=== PATIENT | female | born 1995 | race Caucasian/White ===

== ENCOUNTER 2016-12-29 14:46 | Emergency (ER) | payer BC ==
[~2016-12-29] VITALS: Ht 165.1 cm; Wt 50.0 kg
[~2016-12-29 14:46] MED LIST: CHLO.12%30 SSP; PENI500T PO; TYLE3 PO
[2016-12-29 14:49] VITALS: BP 146/84; PULSE 117; RESP 14; TEMP 98.4; O2SAT 98
[2016-12-29] MEDS ORDERED: [UNRECOGNIZED DRUG - REMARK] (15:29)
[2016-12-29] MEDS ORDERED: [UNRECOGNIZED DRUG - REMARK] (15:29)
[2016-12-29] MEDS ORDERED: TETANUS/DIPHTHERIA TOXOID ADULT 0.5 ML VIAL IM ONE (15:45)
--- NOTE | 2016-12-29 16:26 | RADRPT ---
EXAM DATE/TIME: 12/29/2016 16:11 [facility] COMPARISON: No previous studies available for comparison. INDICATIONS : Patient punched a glass window this afternoon. Patient unable to remove ring on third digit because o f finger being swollen. MEDICAL HISTORY : None. SURGICAL HISTORY : None. ENCOUNTER: Initial ACUITY: 1 day PAIN SCORE: 8/10 LOCATION: Right hand. FINDINGS: There is soft-tissue swelling involving the right third digit. There is no acute fracture or disloca tion. No radiopaque foreign body is noted. CONCLUSION: 1. Mild soft-tissue swelling involving the right third digit. 2. No acute fracture, dislocation, or radiopaque foreign body. Herbierto Vaughan MD on December 29, 2016 at 16:23 Board Certified Radiologist. This report was verified electronically.
[2016-12-29] MEDS ORDERED: LIDOCAINE HCL 1% 50 ML VIAL INFIL ONE (16:30)
[2016-12-29 16:47] LABS: AUTOMATED NEUTROPHIL # 4.2 TH/MM3 (1.8-7.7); BASOPHIL % 0.3 % (0.0-2.0); EOSINOPHIL % 0.5 % (0.0-4.0); HEMATOCRIT 39.8 % (35.0-46.0); HEMO FLAGS DIFF FINAL; LYMPH % 19.9 % (9.0-44.0); LYMPHOCYTE # 1.1 TH/MM3 (1.0-4.8); MEAN CELL VOLUME 86.8 FL (80.0-100.0); MEAN CORPUSCULAR HEMOGLOBIN 29.1 PG (27.0-34.0); MEAN CORPUSCULAR HGB CONC 33.5 % (32.0-36.0); MONO % 4.8 % (0.0-8.0); NEUT % 74.5 % (16.0-70.0); PLATELET COUNT 342 TH/MM3 (150-450); RED BLOOD COUNT 4.59 MIL/MM3 (4.00-5.30); RED CELL DISTRIBUTION WIDTH 13.9 % (11.6-17.2); WHITE BLOOD COUNT 5.6 TH/MM3 (4.0-11.0)
[2016-12-29 17:04] LABS: ANION GAP 6 MEQ/L (5-15); AST (GOT) 35 U/L (15-37); BICARBONATE 28.1 MEQ/L (21.0-32.0); BLOOD UREA NITROGEN 9 MG/DL (7-18); CHLORIDE 106 MEQ/L (98-107); GLOMERULAR FILTRATION RATE 100 ML/MIN (>89); SODIUM (NA) 140 MEQ/L (136-145)
--- NOTE | 2016-12-29 17:07 | PD ---
Physical Exam Time Seen by Provider: 17:[address] Mejia asked me to repair the laceration to the dorsal aspect of the right wrist. Data Data Last Documented VS Vital Signs Date Time Temp Pulse Resp B/P Pulse Ox O2 Delivery O2 Flow Rate FiO2 12/29/16 14:49 98.4 117 14 146/84 98 Room Air Orders Hand, Complete ([id number]) (12/29/16 ) Tetanus/Diphtheria Tox Adult (Tetanus/Di (12/29/16 15:45) Complete Blood Count With Diff (12/29/16 16:10) Comprehensive Metabolic Panel (12/29/16 16:10) Urinalysis - C+S If Indicated (12/29/16 16:10) Ed Urine Pregnancytest Poc (12/29/16 16:10) Psych Screen (12/29/16 16:10) Drug Screen, Random Urine (12/29/16 16:10) Alcohol (Ethanol) (12/29/16 16:10) Lidocaine 1% Inj (50 Ml) (Xylocaine 1% I (12/29/16 16:30) Labs Laboratory Tests Test 12/29/16 16:35 White Blood Count 5.6 TH/MM3 Red Blood Count 4.59 MIL/MM3 Hemoglobin 13.4 GM/DL Hematocrit 39.8 % Mean Corpuscular Volume 86.8 FL Mean Corpuscular Hemoglobin 29.1 PG Mean Corpuscular Hemoglobin 33.5 % Concent Red Cell Distribution Width 13.9 % Platelet Count 342 TH/MM3 Mean Platelet Volume 7.5 FL Neutrophils (%) (Auto) 74.5 % Lymphocytes (%) (Auto) 19.9 % Monocytes (%) (Auto) 4.8 % Eosinophils (%) (Auto) 0.5 % Basophils (%) (Auto) 0.3 % Neutrophils # (Auto) 4.2 TH/MM3 Lymphocytes # (Auto) 1.1 TH/MM3 Monocytes # (Auto) 0.3 TH/MM3 Eosinophils # (Auto) 0.0 TH/MM3 Basophils # (Auto) 0.0 TH/MM3 CBC Comment DIFF FINAL Differential Comment Sodium Level 140 MEQ/L Potassium Level 4.0 MEQ/L Chloride Level 106 MEQ/L Carbon Dioxide Level 28.1 MEQ/L Anion Gap 6 MEQ/L Blood Urea Nitrogen 9 MG/DL Creatinine 0.72 MG/DL Estimat Glomerular Filtration 100 ML/MIN Rate Random Glucose 92 MG/DL Calcium Level 9.1 MG/DL Aspartate Amino Transf 35 U/L (AST/SGOT) Albumin 3.6 GM/DL MDM Supervised Visit with ROLANDO: Yes Narrative Course I repaired the laceration to the dorsal aspect of the right wrist. See my procedure note. Procedures Procedure Narrative LACERATION LOCATION: Dorsal aspect of right wrist LENGTH: 1.5 cm NUMBER OF STITCHES/JESSICA: 4 simple interrupted stitches REPAIR: The area of the laceration was prepped with Betadine and sterilely draped. The laceration was infiltrated with 1% lidocaine. The wound was copiously irrigated and explored without evidence of foreign body, tendon injury or neurovascular injury. The wound was closed using 4-0 Prolene. This was a single layer repair. A sterile dressing was applied. The patient was advised to keep the dressing clean and dry. Patient tolerated the procedure well. Kelsi Rodriguez Dec 29, 2016 17:07
[2016-12-29 17:08] LABS: ALKALINE PHOSPHATASE 113 U/L (45-117); ALT (GPT) 142 U/L (10-53); TOTAL BILIRUBIN ADULT 0.4 MG/DL (0.2-1.0)
--- NOTE | 2016-12-29 17:21 | PD ---
HPI Chief Complaint: Psychiatric Symptoms Time Seen by Provider: 15:20 Travel History International Travel<30 days: No Contact w/Intl Traveler<30days: No Traveled to known affect area: No History of Present Illness HPI Patient is a 21 year old female presents for evaluation of pain and laceration to the right hand and wrist. Patient states she became angry that her plans for the day had fallen through and she punched a window. Patient will not disclose to me what those plans are. patient was escorted from the waiting room to the ER room by police. Apparently mother called 911 today because the patient had texted her pictures of glass saying she was going to kill herself by cutting. When police arrived on scene they could not find the patient. They 'ping'd' her phone and found that she was here in the hospital and came to make sure she was ok. Police ultimately placed a guerra act order on the patient for the history of texting her mother that she was going to kill herself. Patient denies other injuries except to her wrist. Denies SI. PFSH Past Medical History ADHD: No Autoimmune Disease: No Anxiety: No Depression: No Cancer: No Developmental Delay: No Diabetes: No Diminished Hearing: No Genitourinary: No Musculoskeletal: No Neurologic: No Psychiatric: Yes (MOOD D/O) Respiratory: No Immunizations Current: Yes Migraines: No Seizures: No Sickle Cell Disease: No Thyroid Disease: No Ulcer: No ?: Unknown Past Surgical History Appendectomy: No Cholecystectomy: No Ear Surgery: Yes (HAD TUBES PUT IN EARS WHEN YOUNGER) Other Surgery: Yes (EAR TUBES AGE 1) Social History Alcohol Use: No Tobacco Use: Yes Substance Use: No Allergies-Medications (Allergen,Severity, Reaction): Coded Allergies: No Known Allergies (Verified , 05/26/13) Reported Meds & Prescriptions Reported Meds & Active Scripts Active Reported [opiods yesterda] [mood stabilizer unk] Review of Systems Except as stated in HPI: all other systems reviewed are Neg Physical Exam Narrative GENERAL: WD/WN in nad. SKIN: Warm and dry. HEAD: Atraumatic. Normocephalic. EYES: Pupils equal and round. No scleral icterus. No injection or drainage. ENT: No nasal bleeding or discharge. Mucous membranes pink and moist. NECK: Trachea midline. No JVD. CARDIOVASCULAR: Regular rate and rhythm. RESPIRATORY: No accessory muscle use. Clear to auscultation. Breath sounds equal bilaterally. GASTROINTESTINAL: Abdomen soft, non-tender, nondistended. Hepatic and splenic margins not palpable. MUSCULOSKELETAL: RUE: Patient has 1cm laceration at the wrist over the volar radius, this wound is just deep to the skin and has not violated the fascia. There is also a superficial abraision on the lateral most thenar eminence. There is a small abraision at the first MCP joint. The later two wounds are superficial and do not require repair. There is some tenderness over the 4th and 5th metacarpals. There is no swelling. PMS intact. Tendons intact. Forearm, elbow, shoulder otherwise are WNL. LUE: WNL. NEUROLOGICAL: Awake and alert. No obvious cranial nerve deficits. Motor grossly within normal limits. Five out of 5 muscle strength in the arms and legs. Normal speech. PSYCHIATRIC: Angry mood and affect. Denies SI/HI or AVH. Data Data Last Documented VS Vital Signs Date Time Temp Pulse Resp B/P Pulse Ox O2 Delivery O2 Flow Rate FiO2 12/29/16 17:31 98.7 104 18 139/80 99 Room Air Orders Hand, Complete ([id number]) (12/29/16 ) Tetanus/Diphtheria Tox Adult (Tetanus/Di (12/29/16 15:45) Complete Blood Count With Diff (12/29/16 16:10) Comprehensive Metabolic Panel (12/29/16 16:10) Urinalysis - C+S If Indicated (12/29/16 16:10) Ed Urine Pregnancytest Poc (12/29/16 16:10) Psych Screen (12/29/16 16:10) Drug Screen, Random Urine (12/29/16 16:10) Alcohol (Ethanol) (12/29/16 16:10) Lidocaine 1% Inj (50 Ml) (Xylocaine 1% I (12/29/16 16:30) Diet Regular Basic (12/29/16 Dinner) Labs Laboratory Tests Test 12/29/16 12/29/16 16:35 18:00 White Blood Count 5.6 TH/MM3 Red Blood Count 4.59 MIL/MM3 Hemoglobin 13.4 GM/DL Hematocrit 39.8 % Mean Corpuscular Volume 86.8 FL Mean Corpuscular Hemoglobin 29.1 PG Mean Corpuscular Hemoglobin 33.5 % Concent Red Cell Distribution Width 13.9 % Platelet Count 342 TH/MM3 Mean Platelet Volume 7.5 FL Neutrophils (%) (Auto) 74.5 % Lymphocytes (%) (Auto) 19.9 % Monocytes (%) (Auto) 4.8 % Eosinophils (%) (Auto) 0.5 % Basophils (%) (Auto) 0.3 % Neutrophils # (Auto) 4.2 TH/MM3 Lymphocytes # (Auto) 1.1 TH/MM3 Monocytes # (Auto) 0.3 TH/MM3 Eosinophils # (Auto) 0.0 TH/MM3 Basophils # (Auto) 0.0 TH/MM3 CBC Comment DIFF FINAL Differential Comment Sodium Level 140 MEQ/L Potassium Level 4.0 MEQ/L Chloride Level 106 MEQ/L Carbon Dioxide Level 28.1 MEQ/L Anion Gap 6 MEQ/L Blood Urea Nitrogen 9 MG/DL Creatinine 0.72 MG/DL Estimat Glomerular Filtration 100 ML/MIN Rate Random Glucose 92 MG/DL Calcium Level 9.1 MG/DL Total Bilirubin 0.4 MG/DL Aspartate Amino Transf 35 U/L (AST/SGOT) Alanine Aminotransferase 142 U/L (ALT/SGPT) Alkaline Phosphatase 113 U/L Total Protein 8.6 GM/DL Albumin 3.6 GM/DL Ethyl Alcohol Level LESS THAN 3 MG/DL Urine Color YELLOW Urine Turbidity CLOUDY Urine pH 8.0 Urine Specific Standish 1.023 Urine Protein 30 mg/dL Urine Glucose (UA) NEG mg/dL Urine Ketones NEG mg/dL Urine Occult Blood NEG Urine Nitrite NEG Urine Bilirubin NEG Urine Urobilinogen 2.0 MG/DL Urine Leukocyte Esterase SMALL Urine Squamous Epithelial 4 /hpf Cells Urine Amorphous Sediment MOD Urine Bacteria RARE /hpf Urine Mucus FEW /lpf Microscopic Urinalysis Comment CULT NOT INDICATED Urine Opiates Screen POS Urine Barbiturates Screen NEG Urine Amphetamines Screen NEG Urine Benzodiazepines Screen NEG Urine Cocaine Screen NEG Urine Cannabinoids Screen NEG MDM Medical Decision Making Medical Screen Exam Complete: Yes Emergency Medical Condition: Yes Differential Diagnosis Fracture, laceration, SI, Suicidal attempt, FB Narrative Course patient roomed in the emergency department, she was placed under Guerra act by law enforcement. Last 24 hours Impressions Hand X-Ray 12/29/16 0000 Signed Impressions: Service Date/Time: Thursday, December 29, 2016 16:11 - CONCLUSION: 1. Mild soft-tissue swelling involving the right third digit. 2. No acute fracture, dislocation, or radiopaque foreign body. Heriberto Vaughan MD After mom arrives she has spoken with the police and the history is further convoluted: Allegedly the patient texted the picture of glass and suicidal intent to her sister who informed her mother. Patient remains under guerra act from police which i believe is appropriate. Patient sister is not available currently for comment but mother is concerned. She has a small laceration to the volar aspect of her right wrist which is repaired. Pulses motor and sensory are intact. No tendon lacerations. She is medically stable for psychiatric screening and disposition. Diagnosis Primary Impression: Laceration of wrist Qualified Code: S61.511A - Laceration of wrist, right, initial encounter Additional Impressions: Suicidal behavior Suicidal behavior with attempted self-injury Additional Instructions: Stitches should be removed in 12-14 days after placement. Condition: Stable Heriberto Mejia MD Dec 29, 2016 17:21
[2016-12-29 17:31] VITALS: BP 139/80; PULSE 104; RESP 18; TEMP 98.7; O2SAT 99
[2016-12-29 19:21] LABS: BACTERIA, URINE RARE /hpf; BLOOD, URINE NEG (NEG); GLUCOSE,URINE NEG (NEG); KETONE, URINE NEG (NEG); MUCUS URINE FEW /lpf (OCC); NITRITE,URINE NEG (NEG); SQUAMOUS EPITHELIAL CELL URINE 4 /hpf (0-5); URINE COLOR YELLOW (YELLW/STRAW)
[2016-12-29 19:23] LABS: COMMENT (UR) CULT NOT INDICATED; CULTURE IF INDICATED CULT NOT INDICATED
[2016-12-29 19:27] LABS: AMPHETAMINE, URINE NEG (NEG); BARBITURATES, URINE NEG (NEG); COCAINE, URINE NEG (NEG)
[2016-12-29 22:00] VITALS: BP 135/68; PULSE 93; RESP 18; O2SAT 97
[2016-12-30 02:00] VITALS: BP 120/74; PULSE 92; RESP 18; O2SAT 99
== END 2016-12-30 03:30 ==
LOC: NEPB 14:46 → NEPJ 12-30 03:30
DX: S61.511A Laceration without foreign body of right wrist, initial encounter (principal); T14.91 Suicide attempt; X78.0XXA Intentional self-harm by sharp glass, initial encounter; Y92.009 Unspecified place in unspecified non-institutional (private) residence as the place of occurrence of the external cause; Z72.0 Tobacco use; Z23 Encounter for immunization
CPT/HCPCS: 12001; 73130; 80053; 80307; 80320; 81001; 84703; 85025; 90471; 90714

== ENCOUNTER 2017-03-02 17:35 | Emergency (ER) | payer BC ==
[~2017-03-02] VITALS: Ht 165.1 cm; Wt 49.0 kg
[~2017-03-02 17:35] MED LIST changes: -CHLO.12%30 SSP; -PENI500T PO; -TYLE3 PO; +[UNRECOGNIZED DRUG - REMARK]; +[UNRECOGNIZED DRUG - REMARK]
[2017-03-02 17:45] VITALS: BP 109/74; PULSE 114; RESP 16; TEMP 98.8; O2SAT 96
[2017-03-02] MEDS ORDERED: TRAZ50TA12 PO (18:08)
[2017-03-02] MEDS ORDERED: SODIUM CHLOR 0.9% 1000 ML INJ 1,000 ML IV ONE (18:14)
[2017-03-02] MEDS ORDERED: diphenhydrAMINE HCL 50 MG/ML VIAL IVP ONE (18:15)
[2017-03-02] MEDS ORDERED: SODIUM CHLORIDE 0.9% FLUSH 10 ML FLUSH IVF PRN (18:15)
[2017-03-02] MEDS ORDERED: KETOROLAC TROMETHAMINE 30 MG/ML (IVP) VIAL IVP ONE (18:15)
[2017-03-02] MEDS ORDERED: PROCHLORPERAZINE INJ 10 MG/2 ML VIAL IVP ONE (18:15)
--- NOTE | 2017-03-02 18:26 | PD ---
HPI Chief Complaint: Headache Time Seen by Provider: 18:06 Travel History International Travel<30 days: No Contact w/Intl Traveler<30days: No Traveled to known affect area: No History of Present Illness HPI The patient is a 21-year-old female who presents to the emergency department for headache. The patient states she developed a headache earlier today at 2:30 PM. The headache is located across the frontal area bilateral, associated with mild photophobia, nausea, and vomiting. The patient also states that loud sounds exacerbate her headache. The patient denies any neck pain or sudden thunderclap quality to her headache. 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 The patient denies any history of endocarditis or IVDA-related disorders. She denies any current fever , however, does note intermittent chills and sweats. The patient denies any chest pain, shortness of breath, or focal deficits. The patient does have a history of similar headaches in the past but states that she is never undergone a workup with imaging including CT or MRI. PFSH Past Medical History ADHD: No Autoimmune Disease: No Anxiety: No Depression: No Cancer: No Cardiovascular Problems: No Developmental Delay: No Diabetes: No Diminished Hearing: No Gastrointestinal Disorders: No Genitourinary: No Musculoskeletal: No Neurologic: No Psychiatric: Yes (MOOD D/O) Reproductive: No Respiratory: No Immunizations Current: Yes Migraines: No Seizures: No Sickle Cell Disease: No Thyroid Disease: No Ulcer: No ?: Not LMP: 2 WEEKS Past Surgical History Appendectomy: No Cholecystectomy: No Ear Surgery: Yes (HAD TUBES PUT IN EARS WHEN YOUNGER) Other Surgery: Yes (EAR TUBES AGE 1) Social History Alcohol Use: Yes (occ) Tobacco Use: Yes (1 ppd) Substance Use: No Allergies-Medications (Allergen,Severity, Reaction): Coded Allergies: No Known Allergies (Verified , 03/02/17) Reported Meds & Prescriptions Reported Meds & Active Scripts Active Reported Trazodone (Trazodone HCl) 50 Mg Tab 50 Mg PO HS [mood stabilizer unk] Review of Systems Except as stated in HPI: all other systems reviewed are Neg General / Constitutional: Positive: Chills, No: Fever Eyes: Positive: Photophobia HENT: Positive: Headaches, No: Neck Pain Cardiovascular: No: Chest Pain or Discomfort Respiratory: No: Shortness of Breath Gastrointestinal: Positive: Nausea, Vomiting, No: Abdominal Pain Neurologic: Positive: Headache Psychiatric: Positive: Substance Abuse (IVDA with opiates) Physical Exam Narrative GENERAL: Awake, alert, pleasant 21-year-old female who appears her stated age and is in no acute respiratory distress. SKIN: Focused skin assessment warm/dry. Multiple tattoos noted. HEAD: Atraumatic. Normocephalic. EYES: Pupils equal and round. Pupils are 4 mm bilateral and reactive. EOMs are intact. No tenderness over the sphenoid or maxillary sinuses. ENT: No nasal bleeding or discharge. Mucous membranes pink and moist. NECK: Trachea midline. No JVD. No meningeal signs noted. CARDIOVASCULAR: Regular, tachycardic with a heart rate of 110. RESPIRATORY: No accessory muscle use. Clear to auscultation. Breath sounds equal bilaterally. GASTROINTESTINAL: Abdomen soft, non-tender, nondistended. No rebound tenderness. MUSCULOSKELETAL: No obvious deformities. No clubbing. No cyanosis. No edema. NEUROLOGICAL: Awake and alert. No obvious cranial nerve deficits. Motor grossly within normal limits. Normal speech. Nonfocal. Oriented 4. Follows commands without difficulty. PSYCHIATRIC: Appropriate mood and affect; insight and judgment normal. Data Data Last Documented VS Vital Signs Date Time Temp Pulse Resp B/P Pulse Ox O2 Delivery O2 Flow Rate FiO2 03/02/17 17:45 98.8 114 16 109/[address] Brain W/O Iv Contrast(Rout) (03/02/17 18:14) Sodium Chloride 0.9% Flush (Ns Flush) (03/02/17 18:15) Ketorolac Inj (Toradol Inj) (03/02/17 18:15) Prochlorperazine Inj (Compazine Inj) (03/02/17 18:15) Diphenhydramine Inj (Benadryl Inj) (03/02/17 18:15) Sodium Chlor 0.9% 1000 Ml Inj (Ns 1000 M (03/02/17 18:14) MDM Medical Decision Making Medical Screen Exam Complete: Yes Emergency Medical Condition: Yes Medical Record Reviewed: Yes Differential Diagnosis Differential diagnosis includes migraine, tension headache, opiate withdrawal, cluster headache, glaucoma, intracranial hemorrhage, sinusitis, venous sinus thrombosis, septic emboli. Narrative Course IV was established, the patient was placed on cardiac telemetry monitoring, and continuous pulse oximetry monitoring. CT the brain without contrast was ordered. The patient was ordered Toradol, Compazine, Benadryl, and IV fluids. However, the patient refused IV and intravenous medications. The patient also refused CT of the brain. The patient is alert, oriented, able to make a reasonable decision and has no focal deficits. Therefore, the patient was administered Fioricet 2 for headache, advised to follow-up with her primary physician and/or neurologist. Diagnosis Primary Impression: Cephalgia Qualified Code: R51 - Acute nonintractable headache, unspecified headache type Patient Instructions: General Instructions Additional Instructions: Follow-up with her primary physician. Return if symptoms worsen or progress. Stop using IV drugs. Disposition: 01 DISCHARGE HOME Condition: Stable Inocente Cash MD Mar 02, 2017 18:26
[2017-03-02] MEDS ORDERED: ACETAMIN 325 MG/BUTALBITAL 50 MG/CAFFEINE 40 MG TAB PO ONE (19:00)
== END 2017-03-02 18:55 | disposition home or self-care (01) ==
LOC: PHED 17:35
DX: R51 Headache (principal); H53.149 Visual discomfort, unspecified; R11.2 Nausea with vomiting, unspecified; F17.210 Nicotine dependence, cigarettes, uncomplicated
CPT/HCPCS: 99283

== ENCOUNTER 2017-03-05 20:32 | Emergency (ER) | payer BC ==
[~2017-03-05] VITALS: Ht 170.2 cm; Wt 55.0 kg
[~2017-03-05 20:32] MED LIST changes: +TRAZ50TA12 PO; -[UNRECOGNIZED DRUG - REMARK]
[2017-03-05 20:34] VITALS: BP 134/73; PULSE 94; RESP 15; TEMP 98.2; O2SAT 100
--- NOTE | 2017-03-05 21:03 | PD ---
HPI Chief Complaint: Edema Time Seen by Provider: 20:58 Travel History International Travel<30 days: No Contact w/Intl Traveler<30days: No Traveled to known affect area: No History of Present Illness HPI 21 year old female presents to the emergency department for evaluation of right hand pain, swelling that started on night, 2 days ago. Patient reports history of laceration with glass involvement to the volar wrist 2 months ago. She is concerned she may have glass up in her hand. She also states she is an IVDU, using IV Dilaudid. She does not believe she has injected in this location recently. She denies any fevers. She is right handed. Patient denies . PFSH Past Medical History ADHD: No Autoimmune Disease: No Anxiety: No Depression: No Cancer: No Cardiovascular Problems: No Developmental Delay: No Diabetes: No Diminished Hearing: No Gastrointestinal Disorders: No Genitourinary: No Musculoskeletal: No Neurologic: No Psychiatric: Yes (MOOD D/O) Reproductive: No Respiratory: No Immunizations Current: Yes Migraines: No Seizures: No Sickle Cell Disease: No Thyroid Disease: No Ulcer: No Past Surgical History Appendectomy: No Cholecystectomy: No Ear Surgery: Yes (HAD TUBES PUT IN EARS WHEN YOUNGER) Other Surgery: Yes (EAR TUBES AGE 1) Social History Alcohol Use: Yes (occ) Tobacco Use: Yes (1 ppd) Substance Use: No Allergies-Medications (Allergen,Severity, Reaction): Coded Allergies: No Known Allergies (Verified , 03/05/17) Reported Meds & Prescriptions Reported Meds & Active Scripts Active Reported Trazodone (Trazodone HCl) 50 Mg Tab 50 Mg PO HS [mood stabilizer unk] Review of Systems Except as stated in HPI: all other systems reviewed are Neg Physical Exam Narrative GENERAL: Well-nourished, well-developed female patient, ambulatory and in no acute distress. Afebrile. SKIN: Focused skin assessment warm/dry. Scar noted to the volar aspect of the right hand. HEAD: Normocephalic. Atraumatic. EYES: No scleral icterus. No injection or drainage. NECK: Supple, trachea midline. No JVD or lymphadenopathy. CARDIOVASCULAR: Regular rate and rhythm without murmurs, gallops, or rubs. Right radial pulse 2+. RESPIRATORY: Breath sounds equal bilaterally. No accessory muscle use. Lung sounds are clear to auscultation throughout. GASTROINTESTINAL: Abdomen soft, non-tender, nondistended. MUSCULOSKELETAL: No cyanosis. Patient has edema of the right 3rd finger that stays in the slightly flexed position. She has erythema and tenderness over the flexor tendon. She has severe pain with any passive ROM. BACK: Nontender without obvious deformity. No CVA tenderness. Data Data Last Documented VS Vital Signs Date Time Temp Pulse Resp B/P Pulse Ox O2 Delivery O2 Flow Rate FiO2 03/05/17 20:34 98.2 94 15 134/73 100 Room Air Orders Hand, Complete ([id number]) (03/05/17 ) Iv Access Insert/Monitor (03/05/17 20:55) Complete Blood Count With Diff (03/05/17 20:55) Comprehensive Metabolic Panel (03/05/17 20:55) Labs Laboratory Tests Test 03/05/17 21:04 White Blood Count 6.1 TH/MM3 Red Blood Count 4.40 MIL/MM3 Hemoglobin 12.5 GM/DL Hematocrit 37.6 % Mean Corpuscular Volume 85.6 FL Mean Corpuscular Hemoglobin 28.3 PG Mean Corpuscular Hemoglobin 33.1 % Concent Red Cell Distribution Width 13.3 % Platelet Count 237 TH/MM3 Mean Platelet Volume 7.8 FL Neutrophils (%) (Auto) 51.2 % Lymphocytes (%) (Auto) 37.4 % Monocytes (%) (Auto) 9.0 % Eosinophils (%) (Auto) 1.7 % Basophils (%) (Auto) 0.7 % Neutrophils # (Auto) 3.1 TH/MM3 Lymphocytes # (Auto) 2.3 TH/MM3 Monocytes # (Auto) 0.5 TH/MM3 Eosinophils # (Auto) 0.1 TH/MM3 Basophils # (Auto) 0.0 TH/MM3 CBC Comment DIFF FINAL Differential Comment Sodium Level 138 MEQ/L Potassium Level 4.0 MEQ/L Chloride Level 104 MEQ/L Carbon Dioxide Level 27.8 MEQ/L Anion Gap 6 MEQ/L Blood Urea Nitrogen 12 MG/DL Creatinine 0.77 MG/DL Estimat Glomerular Filtration 93 ML/MIN Rate Random Glucose 79 MG/DL Calcium Level 9.1 MG/DL Total Bilirubin 0.3 MG/DL Aspartate Amino Transf 47 U/L (AST/SGOT) Alanine Aminotransferase 86 U/L (ALT/SGPT) Alkaline Phosphatase 85 U/L Total Protein 7.9 GM/DL Albumin 3.4 GM/DL MDM Medical Decision Making Medical Screen Exam Complete: Yes Emergency Medical Condition: Yes Medical Record Reviewed: Yes Interpretation(s) Last Impressions Hand X-Ray 03/05/17 0000 Signed Impressions: Service Date/Time: Sunday, March 05, 2017 21:17 - CONCLUSION: Unremarkable examination of the right hand. Florian Palacios MD Differential Diagnosis flexor tenosynovitis vs. cellulitis vs. abscess Narrative Course 21 year old female presents to the emergency department for evaluation of pain and swelling to the right hand. Physical exam is concerning for flexor tenosynovitis. IV access is obtained. CBC, CMP are ordered and pending. X- ray of the right hand is ordered and pending . CBC shows no acute abnormality. CMP shows elevated AST 47, ALT 86. X-ray of the right hand is unremarkable. I discussed the case with my attending physician, Dr. Mancini, who also examined patient and agrees this is concerning for a tenosynovitis. 2139 - I discussed the case with the hand surgeon associate software application engineer, Dr. Arango, who would like patient admitted to the hospitalist, NPO after midnight and start on broad spectrum antibiotics. I discussed this with the patient who states she has to go home, but states she will come back. She is aware that she is leaving AMA. AMA: The risks of leaving against medical advice without further evaluation treatment were discussed with the patient. These risks include cardiac dysfunction, cardiac dysrhythmia, possible heart attack, possible stroke or . The patient indicated understanding of these risks and appeared to have the capacity to make this decision. Diagnosis Primary Impression: Left against medical advice Additional Impression: Flexor tenosynovitis of finger Disposition: 07 AGAINST MEDICAL ADVICE Joan Mascorro Mar 05, 2017 21:03
[2017-03-05 21:16] LABS: AUTOMATED NEUTROPHIL # 3.1 TH/MM3 (1.8-7.7); BASOPHIL % 0.7 % (0.0-2.0); EOSINOPHIL # 0.1 TH/MM3 (0-0.4); EOSINOPHIL % 1.7 % (0.0-4.0); HEMATOCRIT 37.6 % (35.0-46.0); HEMO FLAGS DIFF FINAL; LYMPH % 37.4 % (9.0-44.0); LYMPHOCYTE # 2.3 TH/MM3 (1.0-4.8); MEAN CELL VOLUME 85.6 FL (80.0-100.0); MEAN CORPUSCULAR HEMOGLOBIN 28.3 PG (27.0-34.0); MEAN CORPUSCULAR HGB CONC 33.1 % (32.0-36.0); NEUT % 51.2 % (16.0-70.0); PLATELET COUNT 237 TH/MM3 (150-450); RED CELL DISTRIBUTION WIDTH 13.3 % (11.6-17.2); WHITE BLOOD COUNT 6.1 TH/MM3 (4.0-11.0)
--- NOTE | 2017-03-05 21:56 | RADRPT ---
EXAM DATE/TIME: 03/05/2017 21:17 [facility] COMPARISON: No previous studies available for comparison. INDICATIONS : Pain in 3rd digit no known injury. MEDICAL HISTORY : None. SURGICAL HISTORY : None. ENCOUNTER: Initial ACUITY: 2 days PAIN SCORE: 10/10 LOCATION: Right 3rd digit FINDINGS: Three view examination of the right hand demonstrates no soft tissue swelling, dislocation, or fractu re. The carpal bones appear intact. The interphalangeal and metacarpophalangeal joints are intact. Bony mineralization is normal. CONCLUSION: Unremarkable examination of the right hand. Florian Palacios MD on March 05, 2017 at 21:54 Board Certified Radiologist. This report was verified electronically.
[2017-03-05 22:01] LABS: ANION GAP 6 MEQ/L (5-15); AST (GOT) 47 U/L (15-37); BICARBONATE 27.8 MEQ/L (21.0-32.0); BLOOD UREA NITROGEN 12 MG/DL (7-18); CHLORIDE 104 MEQ/L (98-107); GLOMERULAR FILTRATION RATE 93 ML/MIN (>89); SODIUM (NA) 138 MEQ/L (136-145)
[2017-03-05 22:05] LABS: ALKALINE PHOSPHATASE 85 U/L (45-117); ALT (GPT) 86 U/L (10-53); TOTAL BILIRUBIN ADULT 0.3 MG/DL (0.2-1.0)
== END 2017-03-05 22:03 | disposition left against medical advice (07) ==
LOC: NEPC 20:32
DX: M65.841 Other synovitis and tenosynovitis, right hand (principal); F17.210 Nicotine dependence, cigarettes, uncomplicated
CPT/HCPCS: 73130; 80053; 85025; 99283

== ENCOUNTER 2017-03-05 23:09 | Inpatient (IN) | payer BC ==
[~2017-03-05] VITALS: Ht 170.2 cm; Wt 49.9 kg
[2017-03-05 23:11] VITALS: BP 121/70; PULSE 96; RESP 16; TEMP 98.7; O2SAT 98
[2017-03-06] VITALS (9 sets, daily range): BP systolic 104–140; BP diastolic 53–87; PULSE 79–101; RESP 16–18; TEMP 97.1–99.2; O2SAT 95–100
--- NOTE | 2017-03-06 00:34 | PD ---
HPI . Right hand infection Chief Complaint: Edema Time Seen by Provider: 23:56 Travel History International Travel<30 days: No Contact w/Intl Traveler<30days: No Traveled to known affect area: No History of Present Illness HPI Patient was seen here earlier tonight and left AMA. She has tenosynovitis of the flexor tendon of her right third finger. The patient's care was discussed with when she was seen earlier. The patient was to be made nothing by mouth past midnight, placed on broad-spectrum antibiotics and admitted to the hospitalist service. PFSH Past Medical History ADHD: No Autoimmune Disease: No Anxiety: Yes Depression: Yes Cancer: No Cardiovascular Problems: No Developmental Delay: No Diabetes: No Diminished Hearing: No Gastrointestinal Disorders: No Genitourinary: No Musculoskeletal: No Neurologic: No Psychiatric: Yes (MOOD D/O) Reproductive: No Respiratory: No Immunizations Current: Yes Migraines: No Seizures: No Sickle Cell Disease: No Thyroid Disease: No Ulcer: No Tetanus Vaccination: < 5 Years Influenza Vaccination: No ?: Not LMP: 02/19/2017 : 0 Past Surgical History Appendectomy: No Cholecystectomy: No Ear Surgery: Yes (HAD TUBES PUT IN EARS WHEN YOUNGER) Other Surgery: Yes (EAR TUBES AGE 1) Social History Alcohol Use: Yes (occ) Tobacco Use: Yes (1 ppd) Substance Use: Yes (IV drug dilaudid yesterday last use) Allergies-Medications (Allergen,Severity, Reaction): Coded Allergies: No Known Allergies (Verified , 03/05/17) Reported Meds & Prescriptions Reported Meds & Active Scripts Active Reported Trazodone (Trazodone HCl) 50 Mg Tab 50 Mg PO HS [mood stabilizer unk] Review of Systems Except as stated in HPI: all other systems reviewed are Neg General / Constitutional: No: Fever, Chills Musculoskeletal: Positive: Myalgias Skin: Positive Change in Pigmentation Physical Exam Narrative GENERAL: Awake and alert and in no acute distress. SKIN: Warm and dry. Erythema and swelling, flexor compartment of right hand over the third MCP joint HEAD: Atraumatic. Normocephalic. EYES: Pupils equal and round. NECK: Trachea midline. CARDIOVASCULAR: Regular rate and rhythm. RESPIRATORY: No accessory muscle use. MUSCULOSKELETAL: No obvious deformities. Unable to extend the right third finger. Passive range of motion causes exquisite pain. NEUROLOGICAL: Awake and alert. No obvious cranial nerve deficits. Motor grossly within normal limits. Normal speech. PSYCHIATRIC: Appropriate mood and affect; insight and judgment normal. Data Data Last Documented VS Vital Signs Date Time Temp Pulse Resp B/P Pulse Ox O2 Delivery O2 Flow Rate FiO2 03/05/17 23:32 Room Air 03/05/17 23:11 98.7 96 16 121/70 98 MDM Medical Decision Making Medical Screen Exam Complete: Yes Emergency Medical Condition: Yes Medical Record Reviewed: Yes Differential Diagnosis Differential diagnosis includes cellulitis, tendinitis, tenosynovitis, abscess Narrative Course Patient returns for treatment of tenosynovitis. She will be admitted to Dr. Esposito Diagnosis Primary Impression: Flexor tenosynovitis of finger Admitting Information Admitting Physician Requests: Admit Condition: Stable Nichole Mancini MD Mar 06, 2017 00:34
[2017-03-06] MEDS ORDERED: ACETAMINOPHEN 325 MG TAB PO PRN (00:45)
[2017-03-06] MEDS ORDERED: SODIUM CHLORIDE 0.9% FLUSH 10 ML FLUSH IV FLUSH PRN (00:45)
[2017-03-06] MEDS ORDERED: BISACODYL 10 MG SUPP RECTAL PRN (00:45)
[2017-03-06] MEDS ORDERED: ONDANSETRON HCL 4 MG/2 ML VIAL IVP PRN (00:45)
[2017-03-06] MEDS ORDERED: Vancomycin Consult Pharmacy 1 EA OTHER SCH (00:45)
[2017-03-06] MEDS: SODIUM CHLOR 0.9% 1000 ML INJ 1,000 ML IV SCH ×3 (00:57→20:44)
[2017-03-06] MEDS: CEFEPIME INJ 1,000 MG in SODIUM CHLORIDE 0.9% INJ 100 ML IV SCH ×2 (01:15→13:00)
--- NOTE | 2017-03-06 01:20 | HHI.HP ---
[facility] Unknown Admission Diagnosis tenosynovitis Diagnoses: (1) Flexor tenosynovitis of finger Diagnosis: Principal (2) IVDU (intravenous drug user) Diagnosis: Principal (3) Tobacco abuse Diagnosis: Principal Travel History International Travel<30 Days: No Contact w/Intl Traveler <30 Da: No Traveled to Known Affected Are: No History of Present Illness This is a 21-year-old female with a PMH of Anxiety, Depression, IVDU or Tobacco Abuse who presented to the ER with right third finger infection. States she cut her finger on a piece of glass few months ago. She was seen in the ER earlier yesterday, 03/05/17, for similar symptoms. Dr. Arango consulted and pt was to be admitted for surgical intervention, however she decided to LEAVE A but stated she would return later for admission. Returns now for admission. On arrival, BP 104/53, HR 90, O2 sat 98% on RA, Afebrile. CBC from 03/05/17 negative, chemistry essentially unremarkable except for mildly elevated LFTs. Hand X-ray unremarkable. Review of Systems Except as stated in HPI: all other systems reviewed are Neg ROS: 14 point review of systems otherwise negative. Past Family Social History Past Medical History PMH: Anxiety, Depression, IVDU or Tobacco Abuse Past Surgical History PAST SURGICAL HISTORY: Tympanostomy Tubes Allergies: Coded Allergies: No Known Allergies (Verified , 03/05/17) Family History PAST FAMILY HISTORY: Reviewed. No h/o DM or CAD Social History PAST SOCIAL HISTORY: Occasional alcohol. Smokes 1ppd. +IVDU w/ Dilaudid, last use yesterday. Physical Exam Vital Signs Vital Signs Date Time Temp Pulse Resp B/P Pulse Ox O2 Delivery O2 Flow Rate FiO2 03/06/17 00:58 90 18 104/53 98 Room Air 03/05/17 23:32 Room Air 03/05/17 23:11 98.7 96 16 121/70 98 Room Air Physical Exam PE: GENERAL: Young female in no acute distress. HEENT: PERRLA, EOMI. No scleral icterus or conjunctival pallor. No lid lag or facial droop. CARDIOVASCULAR: Regular rate and rhythm. No obvious murmurs to auscultation. No chest tenderness to palpation. RESPIRATORY: No obvious rhonchi or wheezing. Clear to auscultation. Breath sounds equal bilaterally. GASTROINTESTINAL: Abdomen soft, non-tender, nondistended. BS normal. MUSCULOSKELETAL: Extremities without clubbing, cyanosis, or edema. No obvious deformities. Right 3rd finger swelling/erythema, decreased ROM. Pulses intact. NEUROLOGICAL: Awake, alert and oriented x4. No focal neurologic deficits. Moving both upper and lower extremities spontaneously. Assessment and Plan Problem List: (1) Flexor tenosynovitis of finger ICD Code: M65.9 Status: Acute (2) IVDU (intravenous drug user) ICD Code: F19.90 Status: Acute (3) Tobacco abuse ICD Code: Z72.0 Status: Acute Assessment and Plan A/P: 1. Right Finger Tenosynovitis: Right 3rd finger infection, concern for tenosynovitis, initially presented on 03/05/17, X-ray 03/05/17 w/ no acute findings, images reviewed by me. Dr. Arango consulted, plan for surgical intervention, however pt LEFT AMA. Returns now for admission. IV Abx, NPO, IVF , antiemetics, caution w/ analgesics. 2. IVDU: w/ Dilaudid. Last injection yesterday. Ativan prn for withdrawal. 3. Tobacco Abuse: Pt counselled. Ativan/NicoDerm prn if needed. 4. DVT Prophylaxis: SCD/Teds. 5. Social work for d/c planning as needed. 6. Case discussed w/ ER physician at length. Physician Certification 2 Midnight Certification Type: Admission for Inpatient Services Order for Inpatient Services The services are ordered in accordance with Medicare regulations or non- Medicare payer requirements, as applicable. In the case of services not specified as inpatient-only, they are appropriately provided as inpatient services in accordance with the 2-midnight benchmark. Estimated LOS (days): 2 days is the estimated time the patient will need to remain in the hospital, assuming treatment plan goals are met and no additional complications. Post-Hospital Plan: Not yet determined Iona Esposito MD Mar 06, 2017 01:20
[2017-03-06] MEDS: SODIUM CHLORIDE 0.9% FLUSH 10 ML FLUSH IV FLUSH SCH ×2 (01:59→19:42)
[2017-03-06] MEDS ORDERED: VANCOMYCIN 1,000 MG/NS 250 ML IV SCH ×2 (02:00)
[2017-03-06] MEDS ORDERED: INSULIN HUMAN REGULAR 1,000 UNITS/10 ML VIAL SQ PRN (05:00)
[2017-03-06] MEDS ORDERED: LACTATED RINGER'S 1000 ML IV PRN (05:00)
[2017-03-06] MEDS ORDERED: POVIDONE IODINE 5% (ANTISEPSIS KIT) 4 APPLICATIONS EACH NARE PRN (05:00)
[2017-03-06] MEDS ORDERED: SODIUM CHLORID 0.9% 500 ML IV PRN (05:00)
[2017-03-06] MEDS ORDERED: CHLORHEXIDINE GLUCONATE 2 % 1 PACK (2 CLOTHS) TOPICAL PRN (05:00)
[2017-03-06] MEDS ORDERED: METOPROLOL TARTRATE 25 MG TAB PO PRN (05:00)
[2017-03-06 07:25] LABS: AUTOMATED NEUTROPHIL # 2.3 TH/MM3 (1.8-7.7); BASOPHIL % 0.3 % (0.0-2.0); EOSINOPHIL # 0.1 TH/MM3 (0-0.4); EOSINOPHIL % 2.5 % (0.0-4.0); HEMO FLAGS DIFF FINAL; LYMPHOCYTE # 1.8 TH/MM3 (1.0-4.8); MEAN CELL VOLUME 86.5 FL (80.0-100.0); MEAN CORPUSCULAR HEMOGLOBIN 28.9 PG (27.0-34.0); MEAN CORPUSCULAR HGB CONC 33.4 % (32.0-36.0); MONO % 8.6 % (0.0-8.0); NEUT % 50.6 % (16.0-70.0); PLATELET COUNT 202 TH/MM3 (150-450); RED BLOOD COUNT 3.93 MIL/MM3 (4.00-5.30); RED CELL DISTRIBUTION WIDTH 13.2 % (11.6-17.2); WHITE BLOOD COUNT 4.6 TH/MM3 (4.0-11.0)
[2017-03-06 07:39] LABS: ALKALINE PHOSPHATASE 70 U/L (45-117); ALT (GPT) 72 U/L (10-53); ANION GAP 7 MEQ/L (5-15); AST (GOT) 45 U/L (15-37); BICARBONATE 23.3 MEQ/L (21.0-32.0); BLOOD UREA NITROGEN 9 MG/DL (7-18); CHLORIDE 112 MEQ/L (98-107); GLOMERULAR FILTRATION RATE 177 ML/MIN (>89); POTASSIUM 4.1 MEQ/L (3.5-5.1); SODIUM (NA) 142 MEQ/L (136-145); TOTAL BILIRUBIN ADULT 0.3 MG/DL (0.2-1.0)
--- NOTE | 2017-03-06 08:58 | HHI.PR ---
Subjective Remarks This is a 21-year-old female with a PMH of Anxiety, Depression, IVDU or Tobacco Abuse who presented to the ER with right third finger infection. States she cut her finger on a piece of glass few months ago. She was seen in the ER earlier yesterday, 03/05/17, for similar symptoms. Dr. Arango consulted and pt was to be admitted for surgical intervention, however she decided to LEAVE AMA but stated she would return later for admission. Returns now for admission. 03/06: Seen in the room in the presence of female nurse present at all times while I was in the room Miss Cottrell appreciated No nausea, vomit or diarrhea, continue with Edema and Mild erythema of the Right hand. Objective Vital Signs Date Time Temp Pulse Resp B/P Pulse Ox O2 Delivery O2 Flow Rate FiO2 03/06/17 04:08 97.6 92 16 116/71 95 03/06/17 00:58 90 18 104/53 98 Room Air 03/05/17 23:32 Room Air 03/05/17 23:11 98.7 96 16 121/70 98 Room Air I/O 03/05/17 03/05/17 03/05/17 03/06/17 03/06/17 03/06/17 07:00 15:00 23:00 07:00 15:00 23:00 Intake Total 0 ml Balance 0 ml Intake Oral 0 ml # Voids 1 # Bowel Movements 0 Result Diagram: 03/06/17 0544 03/06/17 0544 Imaging No Imaging studies Procedures No procedures performed. Other Results Laboratory Tests Test 03/06/17 05:44 White Blood Count 4.6 TH/MM3 Red Blood Count 3.93 MIL/MM3 Hemoglobin 11.4 GM/DL Hematocrit 34.0 % Mean Corpuscular Volume 86.5 FL Mean Corpuscular Hemoglobin 28.9 PG Mean Corpuscular Hemoglobin 33.4 % Concent Red Cell Distribution Width 13.2 % Platelet Count 202 TH/MM3 Mean Platelet Volume 8.2 FL Neutrophils (%) (Auto) 50.6 % Lymphocytes (%) (Auto) 38.0 % Monocytes (%) (Auto) 8.6 % Eosinophils (%) (Auto) 2.5 % Basophils (%) (Auto) 0.3 % Neutrophils # (Auto) 2.3 TH/MM3 Lymphocytes # (Auto) 1.8 TH/MM3 Monocytes # (Auto) 0.4 TH/MM3 Eosinophils # (Auto) 0.1 TH/MM3 Basophils # (Auto) 0.0 TH/MM3 CBC Comment DIFF FINAL Differential Comment Sodium Level 142 MEQ/L Potassium Level 4.1 MEQ/L Chloride Level 112 MEQ/L Carbon Dioxide Level 23.3 MEQ/L Anion Gap 7 MEQ/L Blood Urea Nitrogen 9 MG/DL Creatinine 0.44 MG/DL Estimat Glomerular Filtration 177 ML/MIN Rate Random Glucose 86 MG/DL Calcium Level 8.1 MG/DL Total Bilirubin 0.3 MG/DL Aspartate Amino Transf 45 U/L (AST/SGOT) Alanine Aminotransferase 72 U/L (ALT/SGPT) Alkaline Phosphatase 70 U/L Total Protein 6.3 GM/DL Albumin 2.6 GM/DL Objective Remarks GENERAL: No acute distress. HEENT: PERRLA, EOMI. No scleral icterus or conjunctival pallor. No lid lag or facial droop. CARDIOVASCULAR: Regular rate and rhythm. No obvious murmurs to auscultation. No chest tenderness to palpation. RESPIRATORY: No obvious rhonchi or wheezing. Clear to auscultation. Breath sounds equal bilaterally. GASTROINTESTINAL: Abdomen soft, non-tender, nondistended. BS normal. MUSCULOSKELETAL: Extremities without clubbing, cyanosis, or edema. No obvious deformities. Right 3rd finger swelling/erythema, decreased ROM. Pulses intact. NEUROLOGICAL: Awake, alert and oriented x4. No focal neurologic deficits. Moving both upper and lower extremities spontaneously. Medications and IVs Current Medications Medications (Trade) Dose Ordered Sig/Sarah Route Start Time Stop Time Status Last Admin Pharmacy Profile Note 0 ml @ 0 mls/hr UNSCH OTHER 03/06/17 00:45 Cefepime HCl 1000 mg/Sodium Chloride 100 ml @ 200 mls/hr Q12H IV 03/06/17 01:00 03/06/17 01:15 (NS 1000 ml Inj) 1,000 ml @ 100 mls/hr Q10H IV 03/06/17 00:44 03/06/17 01:58 (NS Flush) 2 ml UNSCH PRN IV FLUSH 03/06/17 00:45 (NS Flush) 2 ml BID IV FLUSH 03/06/17 09:00 (Zofran Inj) 4 mg Q6H PRN IVP 03/06/17 00:45 (Dulcolax Supp) 10 mg DAILY PRN RECTAL 03/06/17 00:45 (Tylenol) 650 mg Q6H PRN PO 03/06/17 00:45 (Roxicodone) 10 mg Q4H PRN PO 03/06/17 00:45 (Roxicodone) 5 mg Q4H PRN PO 03/06/17 00:45 Lorazepam 1 mg 1 mg Q2H PRN IV PUSH 03/06/17 00:45 Lactated Ringer's 1,000 ml @ 30 mls/hr Q24H PRN IV 03/06/17 05:00 03/09/17 04:59 (NS 500 ml Inj) 500 ml @ 30 mls/hr [id number] PRN IV 03/06/17 05:00 03/09/17 04:59 A/P Assessment and Plan 1. Right Finger Tenosynovitis: Right 3rd finger infection, concern for tenosynovitis, initially presented on 03/05/17, X-ray 03/05/17 w/ no acute findings, images reviewed by me. Dr. Arango consulted, plan for surgical intervention, however pt LEFT AMA. Returns now for admission. IV Abx, NPO, IVF, antiemetics, continue Vancomycin and Cefepime by now. with Diagnosis of Flexor tenosynovitis of finger, status post Incision and drainage flexor tendon sheath right middle finger. by Doctor Shabbir Arango, Echocardiogram to evaluate Valves and have basal test. 2. IVDU: w/ Dilaudid. Last injection yesterday. Ativan prn for withdrawal. 3. Tobacco Abuse: Pt counselled. Ativan/NicoDerm prn if needed. DVT Prophylaxis: SCD/Teds. Discharge Planning Expected in one to two days. Allan Luis MD Mar 06, 2017 08:57
--- NOTE | 2017-03-06 09:58 | MB ---
cc: THERESA TAPIA MD DATE OF CONSULTATION: March 06, 2017 REASON FOR CONSULTATION Right middle finger infection. HISTORY OF PRESENT ILLNESS The patient is a 21-year-old right-hand dominant female with history of IV drug abuse, presented with complaints of pain, swelling involving the right middle finger for the past [id number] days. The patient gives history of IV drug abuse with Dilaudid. She denies any injury to the right middle finger, during this presentation, she does give history of laceration to the right wrist about 2 months ago. The patient states she might have a glass piece from the previous injury. Denies any tingling or numbness. Denies any fever or drainage. PAST MEDICAL HISTORY Her past medical history is significant for anxiety, depression, IV drug abuse. EXAMINATION The patient is alert, oriented x3. Examination of right hand reveals a laceration over the volar radial aspect of the wrist. Swelling of the middle finger noted, extending to the palm. Slight erythema is noted over the volar aspect of the middle finger. The fingers are kept in flexed position. She also has prominent swelling along the radial aspect of the PIP joint and proximal phalanx region which is tender to palpate. She also has tenderness along the volar aspect of the proximal phalanx region of the middle finger. No tenderness noted over the distal phalanx region or the DIP joint region on the volar aspect of the middle finger. Intact sensation distally. She has intact distal circulation. She also has tenderness over the A1 lew region of the middle and the ring fingers. Range of motion of the fingers are limited and painful. IMAGING STUDIES X-rays of the right hand done yesterday was reviewed and shows no evidence of foreign body, and soft tissue swelling around the middle finger noted. LABORATORY DATA She had lab work done, she has normal white count of 4.6 with neutrophil shift of 50%. ASSESSMENT A 21-year-old female with history of IV drug abuse and abscess/ flexor tenosynovitis right middle finger. PLAN Plan will be to keep the patient n.p.o., take her for incision and drainage of the abscess, possible drainage of the flexor tendon sheath right middle finger. The patient has been explained risks and benefits and need for procedure. Theresa Tapia MD SE/TLL /9:20 AM /9:52 AM MTDD
[2017-03-06] MEDS ORDERED: PROPOFOL 200 MG/20 ML AMP IV ONE (10:48)
[2017-03-06] MEDS ORDERED: ONDANSETRON HCL 4 MG/2 ML VIAL IV PUSH ONE (10:48)
[2017-03-06] MEDS: VANCOMYCIN INJ 700 MG in SODIUM CHLOR 0.9% 250 ML INJ 250 ML IV SCH ×2 (11:08→19:42)
[2017-03-06] MEDS ORDERED: fentaNYL CITRATE 250 MCG/5 ML AMP ONE (14:19)
[2017-03-06] MEDS ORDERED: MIDAZOLAM HCL 2 MG/2 ML VIAL ONE (14:19)
[2017-03-06] MEDS ORDERED: ceFAZolin INJ 1,000 MG VIAL IV ONE (14:50)
[2017-03-06] MEDS ORDERED: NEOMYCIN/POLYMYXIN 1 ML G.U. IRRIGANT IR ONE (15:00)
[2017-03-06] MEDS ORDERED: LIDOCAINE HCL 2% 50 ML VIAL ONE (15:00)
[2017-03-06] MEDS ORDERED: BUPIVACAINE HCL PF 0.5% 30 ML VIAL ONE (15:00)
--- NOTE | 2017-03-06 16:06 | PD.OP ---
Operative Report Preoperative Diagnosis: (1) Flexor tenosynovitis of finger Postoperative Diagnosis: (1) Flexor tenosynovitis of finger Procedure: Incision and drainage flexor tendon sheath right middle finger Anesthesia: general Surgeon: Shabbir Arango Staff Radiation Therapist(s): edilma Operation and Findings: purulent material within the flexor tendon sheath right middle finger Shabbir Arango MD Mar 06, 2017 16:06
[2017-03-06] MEDS ORDERED: *morphine SULFATE 8 MG/ML PERIprocedure ONLY ONE (16:15)
[2017-03-06] MEDS: LORazepam 2 MG/ML VIAL IV PUSH PRN ×2 (16:17→22:08)
[2017-03-06] MEDS ORDERED: DO NOT ADM ANY ANTICOAGULANT DRUGS PRN (16:45)
--- NOTE | 2017-03-06 20:03 | MP ---
cc: SHABBIR TAPIA MD DATE OF SURGERY: 03/06/2017. PREOPERATIVE DIAGNOSIS: Pyogenic flexor tenosynovitis, right middle finger. POSTOPERATIVE DIAGNOSIS Pyogenic flexor tenosynovitis, right middle finger. OPERATIVE PROCEDURE PERFORMED: Incision and drainage of flexor tendon sheath, right middle finger. SURGEON: Shabbir Tapia M.D. ANESTHESIA: General. ESTIMATED BLOOD LOSS: Minimal. TOURNIQUET TIME: 34 minutes at 250 mmHg. SPECIMEN: Specimen was sent for culture and sensitivity. DISPOSITION: To post-anesthesia care unit stable. INDICATIONS FOR THE PROCEDURE: The patient is a 21-year-old right-hand dominant female admitted to the hospital with complaints of pain and swelling involving the right middle finger of two to three days duration. The patient has a history of IV drug abuse and she started noticing worsening pain symptoms over the right middle finger. On examination, she had tenderness over the volar aspect of the middle finger extending from the palm and into the proximal interphalangeal joint region. Range of motion of the middle finger was associated with pain. She had intact distal sensation. She had normal white count and x-rays were negative for foreign body. Because of the clinical signs of flexor tenosynovitis, the patient was consented for incision and drainage of flexor tendon sheath of the right middle finger. She was explained the risks and benefits of the procedure including the need for the procedure. DESCRIPTION OF THE PROCEDURE IN DETAIL: The patient was brought to the operating room and under general anesthesia, the right upper extremity was thoroughly prepped and draped. The incision site was marked in a zigzag fashion corresponding to the A1 lew extending into the mid palm. After limb elevation, the tourniquet was inflated to 250 mmHg. Incision was then made over the proposed incision site. Skin flaps were elevated exposing the A1 lew. The A1 lew was released in a proximal to distal direction. There was evidence of purulent material within the region. Material was sent for culture and sensitivity. There was extensive tenosynovitis around the flexor tendon and this was extending both proximally and distally. The incision was extended proximally. Skin flaps were elevated and debridement of flexor tenosynovium was carried out. A mid axial incision was then made over the proximal phalanx region on the radial aspect corresponding to the site of tenderness and swelling. Incision was made and using retractors a soft tissue dissection was carried out exposing the flexor tendon sheath. The flexor tendon sheath was opened. There was evidence of purulent material within the region. Another transverse incision was then made just proximal to the proximal interphalangeal joint measuring about 0.5 cm exposing the flexor tendon sheath and the flexor tendon sheath was released. Thorough wash of the flexor tendon sheath was then carried out in the proximal to distal direction. About a liter of solution was used containing normal saline mixed with irrigant. This was carried out until the effluent was clear of the distal incisions. Packing of the wounds was carried out with Iodoform packing material. The tourniquet was deflated. Total tourniquet time was 34 minutes. She had good distal circulation after the tourniquet. Bleeding points were cauterized with bipolar cautery. Skin flaps were loosely approximated in the palm using 4-0 nylon in a horizontal mattress fashion. A bulky hand dressing was applied which was held in place by Sof-Rol and a bias hand wrap. She had good distal circulation at the end of the procedure. She was recovered and sent to the recovery room in stable condition. We will continue with limb elevation and IV antibiotics. We will obtain infectious disease consult and follow up cultures. Shabbir Tapia MD SE/SABA /4:10 PM /7:53 PM JEANMARIE
[2017-03-07] MEDS: CEFEPIME INJ 1,000 MG in SODIUM CHLORIDE 0.9% INJ 100 ML IV SCH ×3 (01:06→23:26)
[2017-03-07] MEDS ORDERED: PHARMACY ORDERED LAB ONE (03:45)
[2017-03-07] MEDS: VANCOMYCIN INJ 700 MG in SODIUM CHLOR 0.9% 250 ML INJ 250 ML IV SCH ×3 (04:21→20:00)
[2017-03-07 05:15] VITALS: BP 119/65; PULSE 92; RESP 16; TEMP 99; O2SAT 98
[2017-03-07] MEDS: SODIUM CHLOR 0.9% 1000 ML INJ 1,000 ML IV SCH ×2 (06:44→16:44)
[2017-03-07 08:00] VITALS: BP 132/82; PULSE 92; RESP 16; TEMP 97.7; O2SAT 98
[2017-03-07] MEDS: SODIUM CHLORIDE 0.9% FLUSH 10 ML FLUSH IV FLUSH SCH ×2 (09:00→19:14)
[2017-03-07 12:00] VITALS: BP 131/83; PULSE 90; RESP 18; TEMP 98.4; O2SAT 99
--- NOTE | 2017-03-07 13:52 | PD.CONS ---
History of Present Illness Service Infectious disease Consult Requested By Dr Arango Reason for Consult Evaluate patient with flexor tenosynovitis Primary Care Physician Unknown Diagnoses: History of Present Illness Patient seen and examined. Records reviewed. Patient is a 21-year-old female, admitted to the hospital for further evaluation of pain and swelling on her right middle finger. Her problems started about to 3 days ago when she noted swelling of her right middle finger. It started getting worse and the swelling now involve her whole right hand mostly on the palm area. She denies any recent open wound. She had an episode of laceration on the palm of her hand close to the right wrist from a piece of glass. That healed without any incident. Patient has known IV drug use but denies injecting in her right hand. She denies any fever or chills or sweats. Denies any sore throat or any respiratory complaint. She denies any red streaks going up her forearm or upper arm. Denies any GI or any urinary complaints. Since admission she has not been febrile. She went to surgery yesterday and found to have flexor tenosynovitis on her right middle finger. Infectious disease consultation has been requested to evaluate the patient. Review of Systems Constitutional: COMPLAINS OF: Fever, Chills, Night Sweats Eyes: COMPLAINS OF: Eye pain Ears, nose, mouth, throat: COMPLAINS OF: Nasal discharge, Oral lesions, Throat pain, Ear Pain, Sinus Pain, Toothache Respiratory: COMPLAINS OF: Cough, Shortness of breath Cardiovascular: COMPLAINS OF: Chest pain, Palpitations, Syncope Gastrointestinal: COMPLAINS OF: Abdominal pain, Diarrhea, Nausea, Vomiting, Difficulty Swallowing Genitourinary: COMPLAINS OF: Urinary frequency, Dysuria Musculoskeletal: COMPLAINS OF: Joint pain, Joint Swelling, DENIES: Muscle aches Integumentary: DENIES: Rash, Nail changes Hematologic/lymphatic: DENIES: Lymphadenopathy Immunologic/allergic: DENIES: Urticaria Neurologic: DENIES: Headache Psychiatric: COMPLAINS OF: Anxiety, DENIES: Hallucinations Past Family Social History Allergies: Coded Allergies: No Known Allergies (Verified , 03/05/17) Past Medical History Anxiety Depression IVDU Past Surgical History Tympanostomy tubes Active Ordered Medications Tylenol prn Dulcolax Cefepime Insulin prn Ativan prn Lopressor prn Zofran prn Oxycodone prn Vancomycin IV Social History Occasional alcohol. Smokes 1ppd. +IVDU w/ Dilaudid Physical Exam Vital Signs Vital Signs Date Time Temp Pulse Resp B/P Pulse Ox O2 Delivery O2 Flow Rate FiO2 03/07/17 12:00 98.4 90 18 131/83 99 03/07/17 08:00 97.7 92 16 132/82 98 03/07/17 07:43 Room Air 03/07/17 05:15 99.0 92 16 119/65 98 03/06/17 23:45 99.0 101 17 140/87 99 03/06/17 21:41 98 21 03/06/17 21:10 99.2 91 16 136/79 100 03/06/17 17:18 97.6 84 16 122/72 03/06/17 16:40 98.6 92 14 122/71 95 Room Air 03/06/17 16:30 92 14 122/71 97 Room Air 03/06/17 16:15 98 14 126/77 98 Room Air 03/06/17 16:01 97.7 103 12 137/63 99 Nasal Cannula 2 Physical Exam GENERAL: This is a thin, well-developed young female, awake and alert, not in distress. SKIN: Cool and dry. No generalized rash or ecchymosis. HEAD: Atraumatic. Normocephalic. No temporal or scalp tenderness. EYES: Chamita conjunctivae. Pupils equal round and reactive. Extraocular motions intact. No scleral icterus. No injection or drainage. ENT: Nose without bleeding, or purulent drainage. Moist oral mucosa. No oral thrush. Throat without erythema, or exudate. Uvula midline. Airway patent. NECK: Trachea midline. No JVD or lymphadenopathy. Supple, nontender, no meningeal signs. CARDIOVASCULAR: Regular rate and rhythm without murmurs, gallops, or rubs. RESPIRATORY: Clear to auscultation. Breath sounds equal bilaterally. No wheezes , rales, or rhonchi. GASTROINTESTINAL: Abdomen soft, flat, non-tender, nondistended. Bowel sounds are present and normoactive. No hepato-splenomegaly, or palpable masses. No guarding. MUSCULOSKELETAL: Extremities without clubbing, cyanosis, or edema. No joint tenderness, effusion, or edema noted. No calf tenderness. R hand - has intact and bulky dry dressing to the hand. No lymphangitis seen going up her RUE NEUROLOGICAL: Awake and alert. Cranial nerves II through XII intact. Five out of 5 muscle strength in all muscle groups. Normal speech. PSYCH: Normal affect, calm and cooperative LINE: PIV with no evidence of infection Laboratory Laboratory Tests Test 03/07/17 05:52 Creatinine 0.53 Estimat Glomerular Filtration 143 Rate Date/Time Procedure Status Source Growth 03/06/17 15:05 Gram Stain - Final Resulted Abscess Finger 03/06/17 15:05 Wound Culture Resulted Abscess Finger Pending 03/06/17 15:05 Fungal Smear - Final Resulted Abscess Finger NO FUNGAL ELEMENTS SEEN. 03/06/17 15:05 Fungal Culture Resulted Abscess Finger Pending 03/06/17 15:05 Acid Fast Stain Received Abscess Finger Pending 03/06/17 15:05 Mycobacterial Culture Received Abscess Finger Pending 03/06/17 12:50 Aerobic Blood Culture - Preliminary Resulted Blood Peripheral NO GROWTH IN 1 DAY 03/06/17 12:50 Anaerobic Blood Culture - Preliminary Resulted Blood Peripheral NO GROWTH IN 1 DAY Result Diagram: 03/06/17 0544 03/07/17 0552 Assessment and Plan Assessment and Plan IMPRESSION Infected flexor tenosynovitis RMF - S/P I and D Known IVDU RECOMMENDATION Continue cefepime IV Continue vancomycin IV Follow cultures, and adjust antibiotics I will discuss with hand surgery regarding extent of infection, and see if oral antibiotic would be an appropriate choice for her when she gets discharge Monitor progress I will follow along with you Thank you for this consultation Sue Valadez MD Mar 07, 2017 13:52
--- NOTE | 2017-03-07 14:19 | HHI.PR ---
Subjective Remarks This is a 21-year-old female with a PMH of Anxiety, Depression, IVDU or Tobacco Abuse who presented to the ER with right third finger infection. States she cut her finger on a piece of glass few months ago. She was seen in the ER earlier yesterday, 03/05/17, for similar symptoms. Dr. Arango consulted and pt was to be admitted for surgical intervention, however she decided to LEAVE AMA but stated she would return later for admission. Returns now for admission. 03/06: Seen in the room in the presence of female nurse present at all times while I was in the room Miss Cottrell appreciated 03/07: With Diagnosis of Flexor Tenosynovitis of finger status post Incision and Drainage flexor tendon Sheath right middle finger by Doctor Shabbir Arango 03/07/17, seen in the presence of female nurse Miss Blanc, No Nausea, vomit or diarrhea, Right Arm elevated, she wants to go home. Objective Vital Signs Date Time Temp Pulse Resp B/P Pulse Ox O2 Delivery O2 Flow Rate FiO2 03/07/17 12:00 98.4 90 18 131/83 99 03/07/17 08:00 97.7 92 16 132/82 98 03/07/17 07:43 Room Air 03/07/17 05:15 99.0 92 16 119/65 98 03/06/17 23:45 99.0 101 17 140/87 99 03/06/17 21:41 98 21 03/06/17 21:10 99.2 91 16 136/79 100 03/06/17 17:18 97.6 84 16 122/72 03/06/17 16:40 98.6 92 14 122/71 95 Room Air 03/06/17 16:30 92 14 122/71 97 Room Air 03/06/17 16:15 98 14 126/77 98 Room Air 03/06/17 16:01 97.7 103 12 137/63 99 Nasal Cannula 2 I/O 03/06/17 03/06/17 03/06/17 03/07/17 03/07/17 03/07/17 07:00 15:00 23:00 07:00 15:00 23:00 Intake Total 0 ml 1510 ml 480 ml 250 ml Output Total 5 ml Balance 0 ml 1505 ml 480 ml 250 ml Intake Oral 0 ml 480 ml 480 ml IV Total 30 ml 250 ml Other 1000 ml Output Estimated Blood Loss 5 ml # Voids 1 1 1 # Bowel Movements 0 0 0 Result Diagram: 03/06/17 0544 03/07/17 0552 Imaging No Imaging studies performed. Procedures Diagnosis of Flexor Tenosynovitis of finger status post Incision and Drainage flexor tendon Sheath right middle finger by Doctor Shabbir Arango 03/07/17 Other Results Laboratory Tests Test 03/06/17 03/07/17 05:44 05:52 White Blood Count 4.6 TH/MM3 Red Blood Count 3.93 MIL/MM3 Hemoglobin 11.4 GM/DL Hematocrit 34.0 % Mean Corpuscular Volume 86.5 FL Mean Corpuscular Hemoglobin 28.9 PG Mean Corpuscular Hemoglobin 33.4 % Concent Red Cell Distribution Width 13.2 % Platelet Count 202 TH/MM3 Mean Platelet Volume 8.2 FL Neutrophils (%) (Auto) 50.6 % Lymphocytes (%) (Auto) 38.0 % Monocytes (%) (Auto) 8.6 % Eosinophils (%) (Auto) 2.5 % Basophils (%) (Auto) 0.3 % Neutrophils # (Auto) 2.3 TH/MM3 Lymphocytes # (Auto) 1.8 TH/MM3 Monocytes # (Auto) 0.4 TH/MM3 Eosinophils # (Auto) 0.1 TH/MM3 Basophils # (Auto) 0.0 TH/MM3 CBC Comment DIFF FINAL Differential Comment Sodium Level 142 MEQ/L Potassium Level 4.1 MEQ/L Chloride Level 112 MEQ/L Carbon Dioxide Level 23.3 MEQ/L Anion Gap 7 MEQ/L Blood Urea Nitrogen 9 MG/DL Random Glucose 86 MG/DL Calcium Level 8.1 MG/DL Total Bilirubin 0.3 MG/DL Aspartate Amino Transf 45 U/L (AST/SGOT) Alanine Aminotransferase 72 U/L (ALT/SGPT) Alkaline Phosphatase 70 U/L Total Protein 6.3 GM/DL Albumin 2.6 GM/DL Creatinine 0.53 MG/DL Estimat Glomerular Filtration 143 ML/MIN Rate Objective Remarks GENERAL: No acute distress. HEENT: PERRLA, EOMI. No scleral icterus or conjunctival pallor. No lid lag or facial droop. CARDIOVASCULAR: Regular rate and rhythm. No obvious murmurs to auscultation. No chest tenderness to palpation. RESPIRATORY: No obvious rhonchi or wheezing. Clear to auscultation. Breath sounds equal bilaterally. GASTROINTESTINAL: Abdomen soft, non-tender, nondistended. BS normal. MUSCULOSKELETAL: Extremities without clubbing, cyanosis, or edema. No obvious deformities. Right arm with Orthotics in place. NEUROLOGICAL: Awake, alert and oriented x4. No focal neurologic deficits. Moving both upper and lower extremities spontaneously. Medications and IVs Current Medications Medications (Trade) Dose Ordered Sig/Sarah Route Start Time Stop Time Status Last Admin Pharmacy Profile Note 0 ml @ 0 mls/hr UNSCH OTHER 03/06/17 00:45 Cefepime HCl 1000 mg/Sodium Chloride 100 ml @ 200 mls/hr Q12H IV 03/06/17 01:00 03/07/17 01:06 (NS 1000 ml Inj) 1,000 ml @ 100 mls/hr Q10H IV 03/06/17 00:44 03/06/17 01:58 (NS Flush) 2 ml UNSCH PRN IV FLUSH 03/06/17 00:45 (NS Flush) 2 ml BID IV FLUSH 03/06/17 09:00 (Zofran Inj) 4 mg Q6H PRN IVP 03/06/17 00:45 (Dulcolax Supp) 10 mg DAILY PRN RECTAL 03/06/17 00:45 (Tylenol) 650 mg Q6H PRN PO 03/06/17 00:45 (Roxicodone) 10 mg Q4H PRN PO 03/06/17 00:45 03/07/17 12:09 (Roxicodone) 5 mg Q4H PRN PO 03/06/17 00:45 Lorazepam 1 mg 1 mg Q2H PRN IV PUSH 03/06/17 00:45 03/06/17 16:17 Lactated Ringer's 1,000 ml @ 30 mls/hr Q24H PRN IV 03/06/17 05:00 03/09/17 04:59 Sodium Chloride 500 ml @ 30 mls/hr [id number] PRN IV 03/06/17 05:00 03/09/17 04:59 (Vancomycin Inj/ NS 250 ml Inj) 257 ml @ 250 mls/hr Q8H IV 03/06/17 12:00 03/07/17 11:58 Miscellaneous Information ALL NURSING DEPARTME... UNSCH PRN .XX 03/06/17 16:45 03/07/17 16:44 A/P Assessment and Plan 1. Right Finger Tenosynovitis: Right 3rd finger infection, concern for tenosynovitis, initially presented on 03/05/17, X-ray 03/05/17 w/ no acute findings, images reviewed by me. Dr. Arango consulted, plan for surgical intervention, however pt LEFT AMA. Returns now for admission. IV Abx, NPO, IVF, antiemetics, continue Vancomycin and Cefepime by now. with Diagnosis of Flexor tenosynovitis of finger, status post Incision and drainage flexor tendon sheath right middle finger. by Doctor Shabbir Arango, Echocardiogram to evaluate Valves and have basal test. 2. IVDU: w/ Dilaudid. Ativan prn for withdrawal. 3. Tobacco Abuse Strongly recommended to stop smoking Discussed with patient and nurse Miss Blanc in the room, all questions answered to the best of my abilities. DVT Prophylaxis: SCD/Teds. Discharge Planning Expected in one to two days. Allan Luis MD Mar 07, 2017 14:19
[2017-03-07 16:00] VITALS: BP 129/78; PULSE 90; RESP 18; TEMP 96.9; O2SAT 99
--- NOTE | 2017-03-07 16:00 | HHI.PR ---
Subjective Remarks complains of pain over right middle finger denies any numbness complaint with limb elevation patient wanting to go home Objective Vital Signs Date Time Temp Pulse Resp B/P Pulse Ox O2 Delivery O2 Flow Rate FiO2 03/07/17 12:00 98.4 90 18 131/83 99 03/07/17 08:00 97.7 92 16 132/82 98 03/07/17 07:43 Room Air 03/07/17 05:15 99.0 92 16 119/65 98 03/06/17 23:45 99.0 101 17 140/87 99 03/06/17 21:41 98 21 03/06/17 21:10 99.2 91 16 136/79 100 03/06/17 17:18 97.6 84 16 122/72 03/06/17 16:40 98.6 92 14 122/71 95 Room Air 03/06/17 16:30 92 14 122/71 97 Room Air 03/06/17 16:15 98 14 126/77 98 Room Air 03/06/17 16:01 97.7 103 12 137/63 99 Nasal Cannula 2 I/O 03/06/17 03/06/17 03/06/17 03/07/17 03/07/17 03/07/17 07:00 15:00 23:00 07:00 15:00 23:00 Intake Total 0 ml 1510 ml 480 ml 250 ml Output Total 5 ml Balance 0 ml 1505 ml 480 ml 250 ml Intake Oral 0 ml 480 ml 480 ml IV Total 30 ml 250 ml Other 1000 ml Output Estimated Blood Loss 5 ml # Voids 1 1 1 # Bowel Movements 0 0 0 right hand: dressing in place packing in place decreased swelling mild erythema mild drainage noted in the palm range of motion of the middle finger is painful and limited intact sensation distally gram stain: gram neg rods Result Diagram: 03/06/17 0544 03/07/17 0552 Procedures Diagnosis of Flexor Tenosynovitis of finger status post Incision and Drainage flexor tendon Sheath right middle finger by Doctor Shabbir Arango 03/07/17 Assessment and Plan Assessment and Plan 21 year old female s/p flexor tendon sheath drainage right middle finger: Plan: dressing changed, patient is not willing for repacking of the wound patient was informed about purulent material not draining continue with iv antibiotics and limb elevation range of motion exercises hand surgery will follow. Shabbir Arango MD Mar 07, 2017 16:00
[2017-03-07 20:05] VITALS: BP 130/79; PULSE 96; RESP 15; TEMP 98.4; O2SAT 99
[2017-03-07 23:05] VITALS: BP 109/61; PULSE 71; RESP 15; TEMP 96.9; O2SAT 99
[2017-03-08] MEDS: SODIUM CHLOR 0.9% 1000 ML INJ 1,000 ML IV SCH ×2 (02:44→12:44)
[2017-03-08 03:05] VITALS: BP 100/66; PULSE 71; RESP 15; TEMP 96.7; O2SAT 99
[2017-03-08] MEDS: VANCOMYCIN INJ 700 MG in SODIUM CHLOR 0.9% 250 ML INJ 250 ML IV SCH (03:22)
[2017-03-08 08:00] VITALS: BP 127/75; PULSE 70; RESP 16; TEMP 96.2; O2SAT 99
[2017-03-08] MEDS: SODIUM CHLORIDE 0.9% FLUSH 10 ML FLUSH IV FLUSH SCH (09:33)
--- NOTE | 2017-03-08 10:29 | HHI.PR ---
Subjective Remarks This is a 21-year-old female with a PMH of Anxiety, Depression, IVDU or Tobacco Abuse who presented to the ER with right third finger infection. States she cut her finger on a piece of glass few months ago. She was seen in the ER earlier yesterday, 03/05/17, for similar symptoms. Dr. Arango consulted and pt was to be admitted for surgical intervention, however she decided to LEAVE AMA but stated she would return later for admission. Returns now for admission. 03/06: Seen in the room in the presence of female nurse present at all times while I was in the room Miss Cottrell appreciated 03/07: With Diagnosis of Flexor Tenosynovitis of finger status post Incision and Drainage flexor tendon Sheath right middle finger by Doctor Shabbir Arango 03/07/17, seen in the presence of female nurse Miss Blanc. Her mother also present 03/08: Seen in the room in the presence of nurse Miss Olguin, she is stable, Wound care positive for Pseudomonas aeruginosa Vancomycin Discontinued will continue Cefepime and follow recommendations by ID specialist consulted by hand pensions retirement plan specialist. No Nausea, vomit or diarrhea Objective Vital Signs Date Time Temp Pulse Resp B/P Pulse Ox O2 Delivery O2 Flow Rate FiO2 03/08/17 08:00 96.2 70 16 127/75 99 03/08/17 03:05 96.7 71 15 100/66 99 03/07/17 23:05 96.9 71 15 109/61 99 03/07/17 20:05 98.4 96 15 130/79 99 03/07/17 16:00 96.9 90 18 129/78 99 03/07/17 12:00 98.4 90 18 131/83 99 I/O 03/07/17 03/07/17 03/07/17 03/08/17 03/08/17 03/08/17 07:00 15:00 23:00 07:00 15:00 23:00 Intake Total 480 ml 970 ml 240 ml 480 ml Output Total 900 ml Balance 480 ml 70 ml 240 ml 480 ml Intake Oral 480 ml 720 ml 240 ml 480 ml IV Total 250 ml Output Urine Total 900 ml # Voids 1 3 6 5 # Bowel Movements 0 1 0 Result Diagram: 03/06/17 0544 03/07/17 0552 Imaging No Imaging studies performed. Procedures Diagnosis of Flexor Tenosynovitis of finger status post Incision and Drainage flexor tendon Sheath right middle finger by Doctor Shabbir Arango 03/07/17 Other Results Laboratory Tests Test 03/06/17 03/07/17 05:44 05:52 White Blood Count 4.6 TH/MM3 Red Blood Count 3.93 MIL/MM3 Hemoglobin 11.4 GM/DL Hematocrit 34.0 % Mean Corpuscular Volume 86.5 FL Mean Corpuscular Hemoglobin 28.9 PG Mean Corpuscular Hemoglobin 33.4 % Concent Red Cell Distribution Width 13.2 % Platelet Count 202 TH/MM3 Mean Platelet Volume 8.2 FL Neutrophils (%) (Auto) 50.6 % Lymphocytes (%) (Auto) 38.0 % Monocytes (%) (Auto) 8.6 % Eosinophils (%) (Auto) 2.5 % Basophils (%) (Auto) 0.3 % Neutrophils # (Auto) 2.3 TH/MM3 Lymphocytes # (Auto) 1.8 TH/MM3 Monocytes # (Auto) 0.4 TH/MM3 Eosinophils # (Auto) 0.1 TH/MM3 Basophils # (Auto) 0.0 TH/MM3 CBC Comment DIFF FINAL Differential Comment Sodium Level 142 MEQ/L Potassium Level 4.1 MEQ/L Chloride Level 112 MEQ/L Carbon Dioxide Level 23.3 MEQ/L Anion Gap 7 MEQ/L Blood Urea Nitrogen 9 MG/DL Random Glucose 86 MG/DL Calcium Level 8.1 MG/DL Total Bilirubin 0.3 MG/DL Aspartate Amino Transf 45 U/L (AST/SGOT) Alanine Aminotransferase 72 U/L (ALT/SGPT) Alkaline Phosphatase 70 U/L Total Protein 6.3 GM/DL Albumin 2.6 GM/DL Creatinine 0.53 MG/DL Estimat Glomerular Filtration 143 ML/MIN Rate Objective Remarks GENERAL: No acute distress. HEENT: PERRLA, EOMI. No scleral icterus or conjunctival pallor. No lid lag or facial droop. CARDIOVASCULAR: Regular rate and rhythm. No obvious murmurs to auscultation. No chest tenderness to palpation. RESPIRATORY: No obvious rhonchi or wheezing. Clear to auscultation. Breath sounds equal bilaterally. GASTROINTESTINAL: Abdomen soft, non-tender, nondistended. BS normal. MUSCULOSKELETAL: Extremities without clubbing, cyanosis, or edema. No obvious deformities. Right hand dressed. NEUROLOGICAL: Awake, alert and oriented x4. No focal neurologic deficits. Moving both upper and lower extremities spontaneously. Medications and IVs Current Medications Medications (Trade) Dose Ordered Sig/Sarah Route Start Time Stop Time Status Last Admin Pharmacy Profile Note 0 ml @ 0 mls/hr UNSCH OTHER 03/06/17 00:45 Cefepime HCl 1000 mg/Sodium Chloride 100 ml @ 200 mls/hr Q12H IV 03/06/17 01:00 03/07/17 13:00 (NS 1000 ml Inj) 1,000 ml @ 100 mls/hr Q10H IV 03/06/17 00:44 03/06/17 01:58 (NS Flush) 2 ml UNSCH PRN IV FLUSH 03/06/17 00:45 (NS Flush) 2 ml BID IV FLUSH 03/06/17 09:00 03/08/17 09:33 (Zofran Inj) 4 mg Q6H PRN IVP 03/06/17 00:45 (Dulcolax Supp) 10 mg DAILY PRN RECTAL 03/06/17 00:45 (Tylenol) 650 mg Q6H PRN PO 03/06/17 00:45 (Roxicodone) 10 mg Q4H PRN PO 03/06/17 00:45 03/07/17 21:39 (Roxicodone) 5 mg Q4H PRN PO 03/06/17 00:45 Lorazepam 1 mg 1 mg Q2H PRN IV PUSH 03/06/17 00:45 03/06/17 16:17 Lactated Ringer's 1,000 ml @ 30 mls/hr Q24H PRN IV 03/06/17 05:00 03/09/17 04:59 Sodium Chloride 500 ml @ 30 mls/hr [id number] PRN IV 03/06/17 05:00 03/09/17 04:59 (Vancomycin Inj/ NS 250 ml Inj) 257 ml @ 250 mls/hr Q8H IV 03/06/17 12:00 03/08/17 03:22 Miscellaneous Information SPECIFIC LAB TO BE DRAWN:VANCOMYCIN TROUGH DATE TO... ONCE ONCE .XX 03/08/17 11:45 03/08/17 11:46 A/P Assessment and Plan 1. Right Finger Tenosynovitis: Right 3rd finger infection, concern for tenosynovitis, initially presented on 03/05/17, X-ray 03/05/17 w/ no acute findings, images reviewed by me. Dr. Arango consulted, plan for surgical intervention, however pt LEFT AMA. Returns now for admission. Status post I and D, initially on Cefepime and Vancomycin, her Wound Culture positive for Pseudomonas Aeruginosa will continue Cefepime sensitivity in Chart. ID specialist consulted. 2. IVDU: w/ Dilaudid. Ativan prn for withdrawal. 3. Tobacco Abuse Strongly recommended to stop smoking Discussed with patient and nurse Miss Olguin Present at all times while I was in the room with her appreciated. all questions answered to the best of my abilities. DVT Prophylaxis: SCD/Teds. Discharge Planning Expected in one to two days. Allan Luis MD Mar 08, 2017 10:29
[2017-03-08] MEDS ORDERED: PHARMACY ORDERED LAB ONE (11:45)
[2017-03-08 12:02] VITALS: BP 126/70; PULSE 72; RESP 16; TEMP 97.4; O2SAT 98
[2017-03-08] MEDS: CEFEPIME INJ 1,000 MG in SODIUM CHLORIDE 0.9% INJ 100 ML IV SCH (13:42)
[2017-03-08 15:25] VITALS: BP 119/75; PULSE 84; RESP 17; TEMP 98.1; O2SAT 99
[2017-03-08] MEDS ORDERED: OXYC-392 PO (17:14)
--- NOTE | 2017-03-08 17:20 | HHI.DS ---
Discharge Summary Admission Date Mar 06, 2017 at 00:42 Discharge Date: Mar 08, 2017 Admitting Diagnosis tenosynovitis (1) Flexor tenosynovitis of finger ICD Code: M65.9 (2) IVDU (intravenous drug user) ICD Code: F19.90 Diagnosis: Principal (3) Tobacco abuse ICD Code: Z72.0 Diagnosis: Principal Procedures Diagnosis of Flexor Tenosynovitis of finger status post Incision and Drainage flexor tendon Sheath right middle finger by Doctor Shabbir Arango 03/07/17 Brief History - From Admission This is a 21-year-old female with a PMH of Anxiety, Depression, IVDU or Tobacco Abuse who presented to the ER with right third finger infection. States she cut her finger on a piece of glass few months ago. She was seen in the ER earlier yesterday, 03/05/17, for similar symptoms. Dr. Arango consulted and pt was to be admitted for surgical intervention, however she decided to LEAVE [place] but stated she would return later for admission. Returns now for admission. On arrival, BP 104/53, HR 90, O2 sat 98% on RA, Afebrile. CBC from 03/05/17 negative, chemistry essentially unremarkable except for mildly elevated LFTs. Hand X-ray unremarkable. CBC/BMP: 03/06/17 0544 03/07/17 0552 Significant Findings Laboratory Tests Test 03/06/17 05:44 Red Blood Count 3.93 MIL/MM3 (4.00-5.30) Hemoglobin 11.4 GM/DL (11.6-15.3) Hematocrit 34.0 % (35.0-46.0) Monocytes (%) (Auto) 8.6 % (0.0-8.0) Chloride Level 112 MEQ/L (98-107) Creatinine 0.44 MG/DL (0.50-1.00) Calcium Level 8.1 MG/DL (8.5-10.1) Aspartate Amino Transf 45 U/L (15-37) (AST/SGOT) Alanine Aminotransferase 72 U/L (10-53) (ALT/SGPT) Total Protein 6.3 GM/DL (6.4-8.2) Albumin 2.6 GM/DL (3.4-5.0) Imaging No Imaging studies performed. PE at Discharge GENERAL: No acute distress. HEENT: PERRLA, EOMI. No scleral icterus or conjunctival pallor. No lid lag or facial droop. CARDIOVASCULAR: Regular rate and rhythm. No obvious murmurs to auscultation. No chest tenderness to palpation. RESPIRATORY: No obvious rhonchi or wheezing. Clear to auscultation. Breath sounds equal bilaterally. GASTROINTESTINAL: Abdomen soft, non-tender, nondistended. BS normal. MUSCULOSKELETAL: Extremities without clubbing, cyanosis, or edema. No obvious deformities. Right hand dressed. NEUROLOGICAL: Awake, alert and oriented x4. No focal neurologic deficits. Moving both upper and lower extremities spontaneously. Hospital Course This is a 21-year-old female with a PMH of Anxiety, Depression, IVDU or Tobacco Abuse who presented to the ER with right third finger infection. States she cut her finger on a piece of glass few months ago. She was seen in the ER earlier yesterday, 03/05/17, for similar symptoms. Dr. Arango consulted and pt was to be admitted for surgical intervention, however she decided to LEAVE AMA but stated she would return later for admission. Returns now for admission. 03/06: Seen in the room in the presence of female nurse present at all times while I was in the room Miss Cottrell appreciated 03/07: With Diagnosis of Flexor Tenosynovitis of finger status post Incision and Drainage flexor tendon Sheath right middle finger by Doctor Shabbir Arango 03/07/17, seen in the presence of female nurse Miss Blanc. Her mother also present 03/08: Seen in the room in the presence of nurse Miss Olguin, she is stable, Wound care positive for Pseudomonas aeruginosa Vancomycin Discontinued will continue Cefepime and follow recommendations by ID specialist consulted by hand oral surgery technician. No Nausea, vomit or diarrhea I was called after the patient is been seen by ID specialist Doctor Sue Valadez and with Hand instructional specialist Doctor Shabbir Arango they recommended and gave script for Cipro 500 mg BID for seven days and follow with hand oral surgery technician. Assessment and Plan 1. Right Finger Tenosynovitis: Right 3rd finger infection, concern for tenosynovitis, initially presented on 03/05/17, X-ray 03/05/17 w/ no acute findings, images reviewed by me. Dr. Arango consulted, plan for surgical intervention, however pt LEFT AMA. Returns now for admission. Status post I and D, initially on Cefepime and Vancomycin, her Wound Culture positive for Pseudomonas Aeruginosa will continue Cefepime. after seen at this time by ID specialist Doctor Sue Valadez and Hand oral surgery technician left an Script for Cipro 500 mg BID for seven days and left a message for me to come and give a script for pain medicine. he will follow the patient in the next two days. 2. IVDU: w/ Dilaudid. Ativan prn for withdrawal. 3. Tobacco Abuse Strongly recommended to stop smoking Discussed with patient and nurse Miss Olguin Present at all times while I was in the room with her appreciated. all questions answered to the best of my abilities. DVT Prophylaxis: SCD/Teds. Discharge Planning Discharge Home today. Pt Condition on Discharge: Stable Discharge Disposition: Discharge Home Discharge Time: <= 30 minutes Discharge Instructions DIET: Follow Instructions for: As Tolerated, No Restrictions Activities you can perform: Regular-No Restrictions Allan Luis MD Mar 08, 2017 17:20
== END 2017-03-08 19:02 | disposition home or self-care (01) | DRG 502 ==
LOC: NEPC 23:09 → NEDA 03-06 00:42 → N06A 03-06 01:38
PROVIDERS: ADMIT Internal Medicine; ATTEND Internal Medicine
PROC: 0L970ZX Drainage of Right Hand Tendon, Open Approach, Diagnostic (ICD-10-PCS; principal; 2017-03-06 14:33)
DX: M65.841 Other synovitis and tenosynovitis, right hand (principal); F32.9 Major depressive disorder, single episode, unspecified; F11.10 Opioid abuse, uncomplicated; B96.5 Pseudomonas (aeruginosa) (mallei) (pseudomallei) as the cause of diseases classified elsewhere; F41.9 Anxiety disorder, unspecified; F17.210 Nicotine dependence, cigarettes, uncomplicated; S61.511D Laceration without foreign body of right wrist, subsequent encounter; W25.XXXD Contact with sharp glass, subsequent encounter; Y92.9 Unspecified place or not applicable; Y99.9 Unspecified external cause status; R79.89 Other specified abnormal findings of blood chemistry
CPT/HCPCS: 73130; 80053; 82565; 85025; 87015; 87040; 87070; 87077; 87102; 87116; 87186; 87205; 87206; 99283; J0690; J0692; J2060; J2250; J2270; J2405; J3010; J3370; J7030; J7050